=== PATIENT | female | born 1945 | race Caucasian/White ===

== ENCOUNTER 2022-04-13 14:39 | Outpatient (RCR) | payer MEDICARE, SELFPAY ==
--- NOTE | 2022-04-13 15:53 | PTOPEVAL1 ---
Assessment and note entered by Twila Juarez DPT Evaluation Information Assessment Status Evaluation Diagnosis L sided low back pain with sciatica Onset 03/23/22 Subjective Information Patient reports she has had chronic back pain but pain has signficantly increased in the past year. She reports she went to the MD who did x-rays that show back and hip arthritis. Patient reports pain is at center of low back with radiation to the L hip. She reports difficulty with walking, lifting, leaning over to brush her teeth and other house hold activities that require her to bend over. Reported Pain Level Pain Score 0: Self Report Assessment PT Clinical Summary Patient is a 76 year old female who presents to PT with L sided low back pain with radiating pain to L hip. She demonstrates decreased B LE strength, decreased flexibility of B hip flexors and impaired posture impairing her ability to lift objects, ambulate prolonged distances and complete heavy house hold tasks. She would benefit from skilled PT to address impairments and return to PLOF. Plan of Care Interventions Electrical Stimulation,Gait Training,Hot Pack/Cold Pack,Manual Therapy,Mechanical Traction,Neuro Re- education,Patient/Caregiver Educati,Therapeutic Activities,Therapeutic Exercise,Self-Care/Home Management PT Services Indicated Yes Treatment Frequency and 2x weekly for 10 visits Duration These treatments will address the objective and functional deficits as defined above. The patient will be advanced safely and appropriately in order for the patient to progress towards his/her prior level of function. Additional exercises will be introduced and as well as a comprehensive home exercise program upon discharge, if needed, ?to ensure carryover of functional gains achieved in the clinic. This treatment plan has been reviewed and agreement upon by the patient.
--- NOTE | 2022-06-15 06:59 | PCPTNOTE ---
DC due to completion of plan
== END 2022-04-30 09:07 | disposition home or self-care (01) ==
LOC: CHSPT 14:39
PROVIDERS: Visit Provider Physician Assistant
DX: M54.42 Lumbago with sciatica, left side (principal); G89.29 Other chronic pain
CPT/HCPCS: 97014; 97110; 97140; 97161; 97530; G0283

== ENCOUNTER 2022-06-15 11:00 | Outpatient (RCR) | payer MEDICARE, SELFPAY ==
--- NOTE | 2022-06-15 11:55 | PTOPEVAL1 ---
Assessment and note entered by Twila Juarez DPT Evaluation Information Assessment Status Evaluation Diagnosis R knee pain Onset 06/09/22 Subjective Information Patient reports R knee pain that has been present for years but within the last 2 months. She reports she has gotten injections in the past that have helped with pain. Patient reports they gave her a brace at the doctors office and her knee feels better with the brace. Patient reports pain with walking, standing, and getting up out of a chairs. She reports pain is located on the lateral aspect of the knee. Reported Pain Level Pain Score 2: Self Report Assessment PT Clinical Summary Patient is a 76 year old female who presents to PT with R knee pain. She demonstrates decreased R knee strength, pain at end range of R knee flexion and tenderness to the R LCL indicating possible LCL sprain. She has difficulty with ambulation, stair navigation and standing up from a chair. She would benefit from skilled PT to address impairments and return to PLOF. Plan of Care Interventions Electrical Stimulation,Gait Training,Hot Pack/Cold Pack,Manual Therapy,Mechanical Traction,Neuro Re- education,Patient/Caregiver Educati,Therapeutic Activities,Therapeutic Exercise PT Services Indicated Yes Treatment Frequency and 3x weekly x 18 visits Duration These treatments will address the objective and functional deficits as defined above. The patient will be advanced safely and appropriately in order for the patient to progress towards his/her prior level of function. Additional exercises will be introduced and as well as a comprehensive home exercise program upon discharge, if needed, ?to ensure carryover of functional gains achieved in the clinic. This treatment plan has been reviewed and agreement upon by the patient.
--- NOTE | 2022-07-10 13:59 | PTOPDC ---
Assessment and note entered by Twila Juarez DPT Evaluation Information Assessment Status Re-evaluation Diagnosis R knee pain Onset 06/09/22 Subjective Information Patient reports her knee has greatly improved. She reports that she is not limited by anything due to knee pain. She reports improved ability to walk and stand without increase in pain. Reported Pain Level Pain Score 0: Self Report Assessment PT Clinical Summary Patient has been seen for 10 visits of skilled PT with great improvements. She demonstrates improve strength of the R knee as well as no pain with ROM . She reports improved ability to standing and walking activity and denies limitations due to knee pain. She is independent with HEP and is appropriate for DC at this time. Plan of Care PT Services Indicated No
== END 2022-07-10 14:08 | disposition home or self-care (01) ==
LOC: CHSPT 11:00
PROVIDERS: Visit Provider Orthopaedic Surgery
DX: M25.561 Pain in right knee (principal)
CPT/HCPCS: 97014; 97110; 97150; 97161; 97530; G0283

== ENCOUNTER 2023-10-20 13:10 | Outpatient (RCR) | payer MEDICARE, SELFPAY ==
--- NOTE | 2023-10-20 13:45 | PTOPEVAL1 ---
Assessment and note entered by Dharmesh Roberts Evaluation Information Assessment Status Evaluation ICD-10 Condition Codes (PT) Pain in low back M54.50 Onset 05/17/23 Subjective Information Pt. report she developed low back pain in the spring. She reports that she recalls no specific incident that started her pain, just gradual onset . She states that pain is worsened with prolonged sitting and prolonged standing. She will get pain at night, but recently started using a body pillow that has helped with sleep. She reports that she also has dizziness, so she avoid bending. Pt. reports walking seems to also increase her pain. She can only walk for 5-10 minutes before needing to hold something or sit down. She continues to complete her house work, however is much slower and results in increased pain. She states that she lives alone and has to care for her home by herself. She states that her goal is to reduce her back pain with prolonged standing. Reported Pain Level Pain Score 1: Self Report Assessment PT Clinical Summary Pt. is a 78 year old female who enters the clinic with low back pain. She presents with impaired postural awareness, impaired core and l.e. strength, impaired trunk mobility, functional decline and pain. Continued skilled PT is indicated in order to improve these areas to allow for improved comfort and efficiency with IADL performance. Plan of Care Interventions Electrical Stimulation,Gait Training,Hot Pack/Cold Pack,Manual Therapy,Mechanical Traction,Neuro Re- education,Patient/Caregiver Educati,Therapeutic Activities,Therapeutic Exercise PT Services Indicated Yes Treatment Frequency and 3x/week x 10 visits Duration These treatments will address the objective and functional deficits as defined above. The patient will be advanced safely and appropriately in order for the patient to progress towards his/her prior level of function. Additional exercises will be introduced and as well as a comprehensive home exercise program upon discharge, if needed, ?to ensure carryover of functional gains achieved in the clinic. This treatment plan has been reviewed and agreement upon by the patient.
--- NOTE | 2023-10-20 13:45 | OPREHPOC ---
Outpatient Therapy Plan of Care This is a Multidisciplinary Plan of Care that may contain components documented by all disciplines (PT, OT, and ST.) PT Problem 1 PT Problem #1 Knowledge Deficit PT Goal 1 Goal / Goal Update Pt. will be independent with a HEP addressing trunk mobility and core strength. Target Visit 2 PT Problem 2 PT Problem #2 Pain PT Goal 1 Goal / Goal Update Reduce pain reports to 4/10 at worst with prolonged standing activities. Target Visit 10 PT Problem 3 PT Problem #3 Impaired Gait PT Goal 1 Goal / Goal Update Pt. will demonstrate appropriate marc with ambulation completing a distance of 900' in 6 minute duration. Target Visit 10 PT Problem 4 PT Problem #4 Impaired Functional Mobil PT Goal 1 Goal / Goal Update Pt. will present with less than 10% limitation the Oswestry indicating significant overall functional improvement. Target Visit 10 PT Problem 5 PT Problem #5 Impaired Range of Motion PT Goal 1 Goal / Goal Update Pt. will demonstrate appropriate level of trunk flexion to safely lift small object from the floor with proper mechanics x 10 reps Pt. will increase proximal l.e. strength to 4+/5 or greater and abdominal strength to good - in all groups. Target Visit 10
--- NOTE | 2023-11-10 13:41 | PTOPDC ---
Assessment and note entered by Dharmesh [facility] Evaluation Information Assessment Status Discharge ICD-10 Condition Codes (PT) Pain in low back M54.50 Onset 05/17/23 Subjective Information Pt. reports that she has been doing well. She will note mild pain early in the day, but after exercise her pain will subside. Reported Pain Level Pain Score 0: Self Report Assessment PT Clinical Summary Mrs. Cook has attended a total of 10 treatment sessions focused on core stability, postural awareness and pain reduction. She demonstrates excellent progress in regards to these areas. Pain reports are minimal and pt. is pain free majority of the time. She has met all goals established at the initial evaluation and is appropriate for discharge at this time. Plan of Care PT Services Indicated No
== END 2023-11-10 15:42 | disposition home or self-care (01) ==
LOC: CHSPT 13:10
PROVIDERS: Visit Provider Physician Assistant
DX: M54.50 Low back pain, unspecified (principal); G89.29 Other chronic pain
CPT/HCPCS: 97014; 97110; 97112; 97140; 97161; 97530; G0283